=== PATIENT | female | born 1985 | race Caucasian/White ===

== ENCOUNTER 2023-03-15 02:19 | Emergency (ER) | payer MEDICAID ==
[~2023-03-15] VITALS: Ht 175.3 cm; Wt 84.2 kg
[2023-03-15 02:25] VITALS: BP 120/60; O2SAT 100
[2023-03-15 03:20] LABS: CLARITY URINE CLOUDY (CLEAR); COLOR URINE YELLOW (YELLOW); GLUCOSE URINE NEGATIVE (NEGATIVE); KETONES URINE TRACE (NEGATIVE); LEUKOCYTE ESTERASE URINE 1+ (NEGATIVE); NITRITE URINE NEGATIVE (NEGATIVE); OCCULT BLOOD URINE NEGATIVE (NEGATIVE); PROTEIN URINE 1+ (NEGATIVE); UROBILINOGEN URINE 0.2 E.U./dL (0.2-1.0)
[2023-03-15] MEDS ORDERED: LIDOCAINE HCL/PF 1% 10 MG/ML 5ML VIAL INFIL ONE (05:30)
[2023-03-15] MEDS ORDERED: NITR100C PO (06:21)
[2023-03-15] MEDS ORDERED: IBUP-2028 PO (06:21)
[2023-03-15 07:29] VITALS: PULSE 89; RESP 12; TEMP 98.3
[2023-03-15 09:30] LABS: SQUAMOUS EPITHELIAL CELL URINE 1+ /lpf (RARE/1+)
[2023-03-15 09:32] LABS: RBC URINE 0-2 /hpf (0-2)
[2023-03-15 09:34] LABS: BACTERIA URINE TRACE
== END 2023-03-15 07:40 | disposition home or self-care (01) ==
LOC: ER 02:19
DX: S62.605A Fracture of unspecified phalanx of left ring finger, initial encounter for closed fracture (principal); W18.30XA Fall on same level, unspecified, initial encounter; Y93.89 Activity, other specified; Y92.89 Other specified places as the place of occurrence of the external cause; Y99.8 Other external cause status
CPT/HCPCS: 81003; 73130; 25605; 99284; J3490; Z7610 ×3